=== PATIENT | female | born 1965 | race Asian ===

== ENCOUNTER 2025-09-27 10:28 | Outpatient (AMB) | payer OTHER, SELFPAY ==
--- NOTE | 2025-09-27 10:43 | A.OFFVIS_ITS ---
Intake Visit Reasons: follow up 6m HPI Comments Details: 60 y/o woman with breast cancer s/p surgery, chemo and undergoing XRT, fibromyaliga, insomnia, and migraine. She is presenting for management of migraine, vertigo, and a fibromyalgia flare- up. She reports a recent migraine attack with associated vertigo this week, noting that these symptoms come and go. She states it has been a while since her last attack. Her history is also significant for fibromyalgia, which is currently flaring up. She also reports feeling irritated. Her current medications include propranolol 20 mg in the morning and sumatriptan as needed for headaches, duloxetine once a day for fibromyalgia, and trazodone 50 mg at night for sleep, which has been effective. The patient notes she is attending physical and occupational therapy for fluid in her right breast and has also started yoga and Carmina. Review of Systems Narrative - Neurological: Reports intermittent migraine attacks and vertigo. - Musculoskeletal: Reports a flare-up of fibromyalgia. - Breast: Reports fluid in the right breast. - Psychiatric: Reports feeling irritated. - Constitutional: Denies symptoms of a cold or flu. Physical Exam Neuro Other: Mental Status: Alert and oriented to person, place, and time. Normal attention. Normal spontaneous speech, fluency, and comprehension. Cranial Nerves: CN II: Visual cleaning full to confrontation, visual acuity intact. CN III, IV, : Pupils equal, round, reactive to light and accommodation. Extraocular movements are normal. CN V: Facial sensation is normal. CN VII: Facial movements symmetrical. CN VIII: Hearing intact to bedside conversation is normal. CN IX, X: Palate elevates symmetrically. CN XI: Shoulder shrug and head turn symmetrical. CN XII: Tongue midline without atrophy or fasciculations. Motor: Bulk and tone normal in all extremities. No significant muscle weakness in arms and legs. No drift. Reflexes: Deep tendon reflexes 2+ and symmetric. Plantar response down-going bilaterally. Coordination: [id number] and [id number] testing normal. No dysmetria. Gait and Station: No obvious gait abnormality. No ataxia or instability. Extrapyramidal: Full facial expressions and blinking. No rigidity. Movements are appropriate with no tremor or abnormality. Speech: Normal; no dysarthria or tremor. Assessment & Plan Assessment & Plan (1) Fibromyalgia: Code(s): M79.7 - Fibromyalgia Category: Medical (2) Insomnia: Code(s): G47.00 - Insomnia, unspecified Category: Medical Qualifiers: Insomnia type: due to other mental disorder Qualified Code(s): F51.05 - Insomnia due to other mental disorder; F99 - Mental disorder, not otherwise specified (3) Migraine without aura: Code(s): G43.009 - Migraine without aura, not intractable, without status migrainosus Category: Medical Qualifiers: Status migrainosus presence: without status migrainosus Intractability: not intractable Qualified Code(s): G43.009 - Migraine without aura, not intractable, without status migrainosus Plan Impression: 1. Fibromyalgia with history of breast cancer status post surgery, chemotherapy, and radiation therapy. 2. Chronic insomnia probably related to same issues causing fibromyalgia 3. Migraine without aura Recommendations: 1. Duloxetine 20 mg twice a day 2. Trazodone 50 mg at bedtime 3. Propranolol 20 mg 1 in the morning 4. Sumatriptan 50 mg 1 a day as needed for headaches I discussed the patient's fibromyalgia flare-up and recommended increasing her duloxetine dose to twice daily, which she agreed to. We confirmed her current medication regimen, clarifying that she is taking trazodone for sleep. We also reviewed her ongoing management for migraines with propranolol and sumatriptan. Medications: New propranolol 20 mg orally once a day with breakfast; 90 tabs 1RF sumatriptan succinate 50 mg orally one a day as needed; 9 tabs 5RF Changed From duloxetine 20 mg PO DAILY 90 caps 0RF To duloxetine 20 mg PO BID 180 caps 1RF Refilled trazodone 50 mg PO BEDTIME PRN 90 tabs 1RF sleep 90 days Coding Level of Care Code Est Pt Level 4 (51087) Diagnoses Fibromyalgia M79.7 Insomnia due to other mental disorder F51.05; F99 Insomnia type: due to other mental disorder Migraine without aura and without status migrainosus, not intractable G43.009 Status migrainosus presence: without status migrainosus Intractability: not intractable
== END 2025-09-27 10:53 | disposition home or self-care (01) ==
LOC: HO.HSM 10:29
PROVIDERS: PCP Internal Medicine; Visit Provider Psychiatry & Neurology Neurology
DX: M79.7 Fibromyalgia (principal); F51.05 Insomnia due to other mental disorder; F99 Mental disorder, not otherwise specified; G43.009 Migraine without aura, not intractable, without status migrainosus
CPT/HCPCS: 99214

== ENCOUNTER → 2025-09-27 10:28 | Outpatient (BNVA) | payer OTHER, SELFPAY | PROVIDERS: PCP Internal Medicine; Visit Provider Psychiatry & Neurology Neurology | DX: G43.009 Migraine without aura, not intractable, without status migrainosus (principal); M79.7 Fibromyalgia; F51.05 Insomnia due to other mental disorder; F99 Mental disorder, not otherwise specified; Z85.3 Personal history of malignant neoplasm of breast; Z79.899 Other long term (current) drug therapy | CPT/HCPCS: 99212 ==